=== PATIENT | male | born 1955 ===

== ENCOUNTER 2025-07-06 14:48 | Outpatient (CLI) | payer MEDICARE, SELFPAY ==
--- NOTE | 2025-07-06 14:56 | CT_ITS ---
WS: [id number] LDCT LUNG CANCER SCREENING HISTORY: NICOTINE DEPENDENCE, CIGARETTES TECHNIQUE: Axial imaging performed from the apices to 1 cm below the costophrenic angles. Coronal and sagittal reformats are submitted with axial MIP series. All CT scans at [facility] use at least one of these dose optimization techniques: automated exposure control; mA and/or kV adjustment per patient size (includes targeted exams where dose is matched to clinical indication); or iterative reconstruction. DLP: 52.89 mGy.cm DIvol: Mean CTDIvol: 0.90 (mGy) COMPARISON: None available. Diagnostic quality: Limited by breathing motion artifact and poor inspiration. Lungs: Centrilobular emphysema. Numerous bilateral subcentimeter pulmonary nodules are identified. Majority of these nodules are calcified. The nodules that are noncalcified are less than 5 mm. No endobronchial lesions. Mild biapical pleural thickening and fibrosis. Heart: Normal size heart with no pericardial effusion.. Other findings: Mild diffuse atherosclerosis aorta. Normal size pulmonary artery. Paratracheal lymph node 1.4 cm. No additional enlarged lymph nodes. No adrenal mass. Gallbladder is negative. Dense calcification involving the proximal renal arteries. Complete renal stenosis is likely. CT/CT lung screening [id number] IMPRESSION: LUNG-RADS: 2S-Benign Appearance or Behavior with Significant Findings FOLLOW UP: 12 Month: Continue annual screening with LDCT OTHER FINDINGS (S MODIFIER): Enlarged paratracheal lymph node 1.4 cm. Only a si ngle lymph node is identified. This may be reactive lymph node. Consider 3-edwin h chest CT follow-up with IV contrast to evaluate for lymphadenopathy.
== END 2025-07-06 14:49 | disposition home or self-care (01) ==
LOC: RAD 14:52
PROVIDERS: PCP Family Medicine; Visit Provider Family Medicine
DX: Z12.2 Encounter for screening for malignant neoplasm of respiratory organs (principal); F17.210 Nicotine dependence, cigarettes, uncomplicated; J43.2 Centrilobular emphysema; I70.1 Atherosclerosis of renal artery; R59.0 Localized enlarged lymph nodes
CPT/HCPCS: 71271